=== PATIENT | male | born 1980 | race Caucasian/White ===

== ENCOUNTER 2022-08-31 13:23 | Emergency (ER) | payer OTHER, SELFPAY ==
[2022-08-31 13:33] VITALS: BP 141/88; PULSE 103; RESP 16; TEMP 37.7; O2SAT 99
--- NOTE | 2022-08-31 14:10 | ED.URI ---
HPI - URI/Sore Throat General Chief Complaint: Upper Respiratory Infection Stated Complaint: COUGH/CONGESTION Time Seen by Provider: 08/31/22 14:04 Source: patient Mode of arrival: ambulatory Limitations: no limitations History of Present Illness HPI Narrative: Patient presents today complaining of cough, fever up to 100, headache, congestion, sore throat, chills, body aches since last night. He currently rates his pain 7/10 and has tried no [id number] treatment prior to arrival. He is a nonsmoker. No history of asthma or COPD. He did receive his flu vaccine this season. Related Data Home Medications Medication Instructions Recorded Confirmed celecoxib 200 mg capsule 200 mg PO DIRECTED 08/31/22 08/31/22 fluoride (sodium) 1.1 % dental 1 applic PO DAILY 08/31/22 08/31/22 paste (PreviDent 5000 Booster Plus) propranolol 10 mg tablet 10 mg PO DAILY 08/31/22 08/31/22 ropinirole 1 mg tablet 1 mg PO DAILY 08/31/22 08/31/22 trazodone 50 mg tablet 50 mg PO DAILY 08/31/22 08/31/22 Allergies Allergy/AdvReac Type Severity Reaction Status Date / Time No Known Allergies Allergy Verified 08/31/22 13:52 Review of Systems Review of Systems: CONSTITUTIONAL: Denies sweats.+ body aches, fever, chills EYES: Denies visual changes, redness, or discharge. ENT: Denies rhinorrhea, or otalgia.+ congestion, sore throat CARDIOVASCULAR: Denies chest pain, palpitations, or edema. RESPIRATORY: Denies dyspnea.+ cough GASTROINTESTINAL: Denies abdominal pain, nausea, vomiting, or diarrhea. GENITOURINARY: Denies dysuria or hematuria. SKIN: Denies rash, itching, or wounds. MUSCULOSKELETAL: Denies back pain, joint pain, or myalgia. NEUROLOGIC: Denies numbness, tingling, or weakness.+ headache PSYCH: Denies depression or anxiety. PMFSH Comments At time of signature, I have reviewed and agree with nursing past medical, surgical, social and family history unless otherwise noted. Please see nursing chart for further information. There is no relevant family history pertinent to the presenting complaint Exam Narrative: GENERAL: Mildly ill-appearing, well-nourished, and in no acute distress. HEAD: Normocephalic, atraumatic. EYES: EOMI. No redness or drainage. Conjunctivae normal. ENT: Mucous membranes pink and moist. Nares clear. No rhinorrhea. TMs normal bilaterally. Throat erythematous without edema or exudate. Uvula midline. NECK: Normal AROM. Supple. No lymphadenopathy. CHEST: No respiratory distress. Clear to auscultation. HEART: Regular rate and rhythm. No murmur appreciated. Normal peripheral pulses. EXTREMITIES: Normal range of motion. No edema. SKIN: Warm, dry, no rash. Capillary refill normal. Normal skin turgor. NEURO: No focal deficits. Alert and oriented x3. Gait steady. PSYCH: Normal affect. No signs of depression or anxiety. Course Course Level of Care: Express Care Visit Vital Signs Vital signs: Vital Signs Temperature 99.9 F H 08/31/22 13:33 Pulse Rate 103 H 08/31/22 13:33 Respiratory Rate 16 08/31/22 13:33 Blood Pressure 141/88 H 08/31/22 13:33 Pulse Oximetry 99 08/31/22 13:33 Oxygen Delivery Room Air 08/31/22 13:33 Temperature 99.9 F H 08/31/22 13:33 Pulse Rate 103 H 08/31/22 13:33 Respiratory Rate 16 08/31/22 13:33 Blood Pressure 141/88 H 08/31/22 13:33 Pulse Oximetry 99 08/31/22 13:33 Oxygen Delivery Room Air 08/31/22 13:33 Reviewed. Pt has been instructed to follow up with his PCP regarding his elevated blood pressure today. MDM - URI/Sore Throat Differential Diagnosis Differential diagnosis: Likely upper respiratory infection, viral infection and influenza Lab Data Attestation: I reviewed the patient's lab results. Lab results narrative: Influenza a positive Critical Care Time Critical Care Time Critical Care Time: No Discharge Plan Discharge Clinical Impression: Influenza A Patient Disposition: Home, Self-Care Condition: Stable In
== END 2022-08-31 14:22 | disposition home or self-care (01) ==
PROVIDERS: Emergency Provider Nurse Practitioner; PCP Student in an Organized Health Care Education/Training Program
DX: J10.1 Influenza due to other identified influenza virus with other respiratory manifestations (principal)
CPT/HCPCS: 87804; 99213; G0463

== ENCOUNTER → 2023-03-10 14:08 | Outpatient (CLI) | payer OTHER, SELFPAY ==
--- NOTE | ~2023-03-10 | XR_ITS ---
EXAMINATION: XR elbow LT min 3V DATE: 03/10/2023 15:10 INDICATION: Left elbow pain TECHNIQUE: Anteroposterior, two oblique and lateral views of the left elbow were obtained. COMPARISON: None. FINDINGS: Alignment is normal. No fracture or joint effusion. Joint spaces are normal. Soft tissues are unremar kable. IMPRESSION: 1. Negative left elbow radiographs. Reviewed, dictated and finalized at location A.
== END ==
PROVIDERS: PCP Registered Nurse; Visit Provider Registered Nurse
DX: M25.522 Pain in left elbow (principal)
CPT/HCPCS: 73080

== ENCOUNTER → 2023-03-24 07:45 | Outpatient (CLI) | payer OTHER, SELFPAY ==
--- NOTE | ~2023-03-24 | MR_ITS ---
EXAMINATION: MR elbow LT wo con DATE: 03/24/2023 08:22 INDICATION: Left elbow pain. TECHNIQUE: Magnetic resonance imaging (MRI) of the left elbow was performed without intravenous contr ast. Sequences included coronal, axial, and sagittal PD-weighted FS FSE and coronal, axial, and sagit dacia PD-weighted FSE. COMPARISON: Left elbow radiograph 03/10/2023 FINDINGS: Osseous/other: Bone alignment is normal. No fracture. There is partial-thickness cartilage loss of capitellum with m ild subchondral edema-like marrow signal intensity. Tendons: Brachialis tendon and biceps tendon normal. There is moderate common flexor tendinopathy at medial hu meral epicondyle. There is a partial tear of common extensor tendon at lateral humeral epicondyle. Ligaments: Radial collateral ligament and lateral ulnar collateral ligament are intact. There are changes of bonny or sprain of ulnar collateral ligament characterized by increased signal intensity. Cubital tunnel: The ulnar nerve is normal. Fluid: There is no elbow joint effusion. IMPRESSION: 1. Partial tear of common extensor tendon at lateral humeral epicondyle. 2. Moderate tendinopathy of common flexor tendon at medial humeral epicondyle. 3. Mild chondrosis of capitellum. Reviewed, dictated and finalized at location A.
== END ==
PROVIDERS: PCP Registered Nurse; Visit Provider Registered Nurse
DX: S53.492A Other sprain of left elbow, initial encounter (principal); X58.XXXA Exposure to other specified factors, initial encounter
CPT/HCPCS: 73221